=== PATIENT | male | born 1970 | race Caucasian/White ===

== ENCOUNTER 2016-12-21 14:30 | Emergency (ER) | payer OTHER ==
[~2016-12-21] VITALS: Ht 188 cm; Wt 100.0 kg
[2016-12-21 14:33] VITALS: BP 163/100; PULSE 96; RESP 15; O2SAT 100
[2016-12-21] MEDS ORDERED: CeFAZolin Inj 2 GM in Dextrose 5% 50 ML IV ONE (15:00)
--- NOTE | 2016-12-21 15:43 | ED.REPORT ---
HPI-Hand Prob/Inj Date of Service Dec 21, 2016 ED Provider: Johnathon Villar MD Pt is a right hand dominant 46 y/o male presenting to the ED due to right middle finger injury which occurred shortly prior to arrival. The patient was playing 1st base in baseball and a ball was hit towards him and it deflected off the gloved left hand into the 3rd finger of the right hand. There was an instant deformity present and he has been experiencing a burning, 6/10, nonradiating pain since the incident. There was no contamination of the wound after the incident. He denies numbness or weakness. He denies any other injuries or symptoms. Nursing Notes Stated Complaint: RIGHT HAND INJURY Chief Complaint: Extremity Trauma Nursing Notes Reviewed: Yes Allergies: Coded Allergies: No Known Allergies (Unverified , 12/21/16) General Time Seen by Provider: 15:54 Chief Complaint Finger injury right Hx Obtained From: Patient Arrived By: Walk-in Onset Occurred: 1 - 4 hours ago Symptom Duration: Since onset Progression Since Onset: Constant Location: Right Hand: : Distal phalanx... (Middle) Quality: Painful Severity: Current: Moderate Severity: Maximum: Moderate Recent Healthcare: No recent doctor visit, No recent hospitalization Similar Sx Previous: No Past Medical History Past Medical History Denies Past Surgical History R knee ACL and meniscus repair Family History Denies Smoking History Never Smoker Social History Alcohol Use: "Social" Drug Use: Denies drug use Occupation Office work Ambulatory Status Independent Review of Systems Musculoskeletal: Reports: Extremity pain, Extremity swelling Neurologic: Denies: Numbness, Weakness Complete sys rev & neg: except as marked. Physical Exam Nursing note and vitals reviewed. Constitutional: Well-developed, well-nourished. Not diaphoretic. Head: Normocephalic and atraumatic. Mouth/Throat: Oropharynx is clear and moist. No oropharyngeal exudate. Eyes: EOM are normal. Pupils are equal, round, and reactive to light. Neck: Supple, no tracheal deviation. Cardiovascular: Normal rate, regular rhythm. Equal and intact distal pulses throughout. Pulmonary/Chest: Effort normal and breath sounds normal. No respiratory distress. Musculoskeletal: Obvious deformity of the right middle finger with open dislocation of the distal phalanx at the PIP. Open avulsion wound to the palmar aspect of the PIP with bone and tendon visible. SILT throughout, including on both radial and ulnar aspects distal to the injury. Does endorse some numbness but states that he thinks it's from the ice. Still able to flex/extend at both PIP and DIP. Neurological: AOx3. Grossly nonfocal exam. Skin: Warm and dry, no rashes or pallor appreciated. Psychiatric: Appropriate mood and affect. Behavior appears normal. Initial Vital Signs Vital Signs (First) Date Time Temp Pulse Resp B/P Pulse Ox O2 Delivery O2 Flow Rate FiO2 12/21/16 14:33 36.9 96 15 163/100 100 Room Air Initial VS: Reviewed, Vital signs abnormal Interpretation & Diagnostics X-Ray Interpretation Xray Interpretation: FINDINGS: Bones: There is dorsal dislocation with approximate 1.4 cm overlap at the third IP joint. There is a noted traction or at the base of the middle third phalanx which does not appear to be intra-articular. Soft tissues: No suspicious soft tissue calcifications. IMPRESSION: Dorsal dislocation of the third IP joint with middle third phalanx fracture. Dictated by: Karo Anand M.D. on 12/21/2016 at 15:51 Approved by: Karo Anand M.D. on 12/21/2016 at 15:54 X-Ray Ordered: Hand right Interpretation / Wet Read by: Interpret - Radiologist Procedures Digital Nerve Block Time: 18:00 Procedure Performed by: ED physician Indication: Other (dislocation reduction) Consent / Setup / Site Prep: Consent from patient, Hand hygiene observed Skin Preparation Agent: Hibiclens - Chlorhexidine Digit Involved: Middle finger right Digital Block Procedure: Two digital nerve block, Lidocaine 1%, Anesthesia obtained Post-Procedure / Complications: No complications, Condition improved, Tolerated procedure well, Patient stable Laceration Management Time: 18:40 Procedure Performed by: ED physician Consent / Setup / Site Prep: Consent from patient, Hand hygiene observed, Stand sterile technique Location of Wound: Palmar aspect of PIP on middle finger of right hand Wound Length: 3 cm Local Anesthesia: Lidocaine 1% Digital Block: Yes Digit Involved: Middle finger right Wound Preparation: Hibiclens - Chlorhexidine Irrigation: Copious Foreign Body Explore / Removal: Explored for foreign body Repair Skin: ___ O (5), Nylon # Sutures - Skin: 6 Post-Procedure / Complications: No complications, Condition improved, Tolerated procedure well, Patient stable Reduction Finger Time: 18:00 Procedure Performed by: ED physician Consent / Setup / Site Prep: Consent from patient, Hand hygiene observed, Stand sterile technique Finger / Joint Involved: PIP, Right 3 Anesthetic Method / Agent: Digital block Post-Procedure / Complications: NV intact post-procedure, Procedure successful , X-ray confirms reduction, No complications, Tolerated procedure well, Patient stable Splint Application - Fx Mgt Time: 20:30 Procedure Performed by: ED physician Precise Anatomic Location: Right radial gutter splint. Xeroform applied to wound prior to splint application. Definitive Fracture Care: Pain control Post-Procedure / Complications: Cap refill normal, Post splint vascular nl, Post splint neuro nl, Tolerated procedure well, Patient stable Splint Post-Applic Eval Extremity Condition: Cap refill < 2 sec, Distal sensation intact, Distal motor Intact Re-Eval/Medical Decision Med Decision/Clinical Course In summary, 46-year-old male with an unremarkable past medical history presenting to the ED for evaluation after sustaining an injury to his right middle finger playing softball earlier today. Upon my initial assessment, the patient has what appears to be an obvious open dislocation at the PIP of his right middle finger. He was having some numbness distal to the injury, however maintained good capillary refill and he felt that this may be secondary to the ice. Neurovascularly intact. An x-ray confirmed a fracture dislocation at the PIP; please see read above. Tetanus up-to-date. Patient given Ancef upon arrival. I consulted Dr. Rausch; appreciate recommendations. He stated that the patient could be loosely closed after reduction and irrigation. I performed a digital block as per above. The finger was reduced without significant difficulty. Postreduction x-ray demonstrates improved alignment and reduction. I then sutured the wound as noted above; I then sent these pictures to Dr. Rausch for review he felt that these were suitable for now and recommended placement in a radial gutter splint with flexion of the PIP at 30, Xeroform on the wound. This was then performed as noted above, tolerated well by the patient. Neurovascular status remained intact after splint placement with good capillary refill. After discussion with both the patient and Dr. Rausch, the decision was made to discharge the patient home with follow-up to be scheduled tomorrow for within the next 1-2 days. Very careful return precautions were discussed at length with the patient. Patient agreeable to the plan as stated, no further questions. Re-Evaluation/Progress : Time of Eval: 18:00 Re-Evaluation/Progress Note: Successfully reduced. Consultation : Referral / Consult Name: Vinod Rausch DO Consulted With: Orthopedic Call Returned at: 15:54 Television Anchor: Agrees with eval, Agrees with plan Note: Will review imaging and call back. 16:00 - Place in radial-gutter splint. To reduce: irrigate, close, and he will f/u this week. Put on Keflex. 18:43 - He says he needs f/u in 1-2 days and will see in f/u in clinic if he comes back. Counseled Regarding: Diagnosis, Need for follow-up, When/why to return to ED Discharge & Departure Primary Impression: Open fracture dislocation of finger Encounter type: initial encounter Qualified Code: S62.609B - Fracture of unspecified phalanx of unspecified finger, initial encounter for open fracture Disposition: Home Discharge Condition All VS Reviewed: Yes Condition: Stable Patient Instructions: Finger Dislocation (ED), Finger Fracture (ED) Referrals: Vinod Rausch DO [facility] Scribe Attestation Portions of this note were transcribed by Gael Mendoza. I, Dr. Villar personally performed the history, physical exam and medical decision-making; I reviewed and confirmed the accuracy of the information in the transcribed note. Signed by Nicolasa Sagastume, 12/21/16 - 1600 copies to: Vinod Rausch William B MD Dec 21, 2016 15:43 GAEL MENDOZA Dec 21, 2016 15:45
--- NOTE | 2016-12-21 15:55 | DRSVH ---
PROCEDURE: X-RAY FINGERS, TWO VIEWS INDICATIONS: right 3rd finger open fx/dislocation TECHNIQUE: AP hand, 2 views of the third finger(s) acquired. COMPARISON: None. FINDINGS: Bones: There is dorsal dislocation with approximate 1.4 cm overlap at the third IP joint. There is a noted traction or at the base of the middle third phalanx which does not appear to be intra-articular . Soft tissues: No suspicious soft tissue calcifications. IMPRESSION: Dorsal dislocation of the third IP joint with middle third phalanx fracture. Dictated by: Karo Anand M.D. on 12/21/2016 at 15:51 Approved by: Karo Anand M.D. on 12/21/2016 at 15:54
[2016-12-21 16:45] VITALS: BP 144/87; PULSE 77; RESP 20; O2SAT 100
[2016-12-21] MEDS ORDERED: fentaNYL-PF 50 mCg/mL 2 mL Inj IVPUSH ONE (18:00)
--- NOTE | 2016-12-21 20:08 | DRSVH ---
PROCEDURE: X-RAY FINGERS, TWO VIEWS INDICATIONS: POST REDUCTION OF 3RD DIGIT TECHNIQUE: AP hand, 2 views of the third finger(s) acquired. COMPARISON: [facility], CR, XR FINGER(S) RT 2VW, 12/21/2016, 14:54. FINDINGS: Bones: There has been interval reduction of the previously identified dislocated third digit. There i s a mildly displaced fracture at the base of the middle second phalanx without definitive articular e xtension. Soft tissues: No suspicious soft tissue calcifications. IMPRESSION: Interval reduction of previous third digit dislocation with middle phalanx fracture. Dictated by: Karo Anand M.D. on 12/21/2016 at 20:05 Approved by: Karo Anand M.D. on 12/21/2016 at 20:06
[2016-12-21] MEDS ORDERED: HYDROmorphone 1 mg/mL Inj IVPUSH ONE (20:10)
[2016-12-21] MEDS ORDERED: _oxyCODONE/APAP 5-325 mg Tablet PO PRN (20:25)
[2016-12-21] MEDS ORDERED: _Cephalexin 500 mg Capsule PO SCH (20:30)
[2016-12-21 20:40] VITALS: BP 146/87; PULSE 73; RESP 16; O2SAT 100
[2016-12-21 21:16] VITALS: BP 146/87; PULSE 73; RESP 16; O2SAT 100
== END 2016-12-21 21:00 | disposition home or self-care (01) ==
LOC: SED 14:30
DX: S62.642B Nondisplaced fracture of proximal phalanx of right middle finger, initial encounter for open fracture (principal); W21.03XA Struck by baseball, initial encounter; Y93.64 Activity, baseball; Y92.320 Baseball field as the place of occurrence of the external cause; Y99.8 Other external cause status
CPT/HCPCS: 12002; 26770; 73140; 99284; J0690; J1170; J2250; J3010